=== PATIENT | female | born 1995 | race Two or more races ===

== ENCOUNTER 2017-09-28 19:12 | Emergency (ER) | payer OTHER ==
[~2017-09-28] VITALS: Ht 167.6 cm; Wt 74.7 kg
[~2017-09-28 19:12] MED LIST: MOTRIN800 MG PO; ROBITUSSIN AC,T10 ML PO; ZITHROMAX Z-PA250 MG PO
[2017-09-28 20:10] LABS: HEMATOCRIT 39.6 % (36.0-46.0); HEMOGLOBIN 13.5 G/DL (11.9-15.5); MCH 31.5 PG (29.0-34.0); MCHC 34.1 G/DL (30.0-36.0); MCV 92.3 FL (83-99); PLATELET COUNT 226 K/uL (156-360); RBC DIS.WIDTH-SD 41.1 % (39-53); RED BLOOD COUNT 4.29 M/uL (3.80-5.20); WHITE BLOOD COUNT 5.8 K/uL (4.1-10.2)
[2017-09-28 20:20] LABS: CHLORIDE 105 mEq/L (99-109); SODIUM 139 mEq/L (136-147)
[2017-09-28 20:22] LABS: GLUCOSE 83 mg/dL (70-99)
[2017-09-28 20:26] LABS: CREATININE 0.8 mg/dL (0.6-1.3); GFR ESTIMATE (CALCULATED) > 59 mL/min/
[2017-09-28 20:27] LABS: UREA NITROGEN (BUN) 15 mg/dL (9-23)
[2017-09-28 22:38] LABS: TROP-I INTERPRETATION NEGATIVE; TROPONIN-I 0.01 ng/mL (0.0-0.30)
[2017-09-28 23:24] LABS: QUANTITATIVE HCG < 4.0 MIU/ML
[2017-09-28] MEDS ORDERED: SKELAXIN800 MG PO (23:58)
[2017-09-28] MEDS ORDERED: MOTRIN600 MG PO (23:58)
[2017-09-29 00:04] VITALS: BP 129/88
== END 2017-09-29 00:06 | disposition home or self-care (01) ==
LOC: RME 19:12 → EME 19:12 → RME 09-29 00:06
DX: S29.011A Strain of muscle and tendon of front wall of thorax, initial encounter (principal); X58.XXXA Exposure to other specified factors, initial encounter; F17.200 Nicotine dependence, unspecified, uncomplicated; Z82.49 Family history of ischemic heart disease and other diseases of the circulatory system
CPT/HCPCS: 71046; 80048; 84484; 84702; 85027; 93005; 99281; 99284; J1885